=== PATIENT | male | born 1950 | race Hispanic/Latino ===

== ENCOUNTER → 2020-04-02 | Outpatient (CLI) | payer OTHER, MEDICARE | END | disposition home or self-care (01) | LOC: RAH 08:43 | PROVIDERS: ATTEND Internal Medicine Gastroenterology | DX: K76.89 Other specified diseases of liver (principal); J90 Pleural effusion, not elsewhere classified; R91.8 Other nonspecific abnormal finding of lung field; N28.1 Cyst of kidney, acquired; R91.1 Solitary pulmonary nodule; N28.89 Other specified disorders of kidney and ureter; K83.8 Other specified diseases of biliary tract; R63.4 Abnormal weight loss | CPT/HCPCS: 76700; 93975 ==

== ENCOUNTER → 2020-04-26 | Outpatient (CLI) | payer OTHER, MEDICARE ==
[~2020-04-26] MED LIST: IOHEXOL 350 MG/ML 100ML INFUS..BTL IV ONE
== END | disposition home or self-care (01) ==
LOC: RAH 09:22
PROVIDERS: ATTEND Internal Medicine Gastroenterology
DX: C18.0 Malignant neoplasm of cecum (principal); R18.8 Other ascites; N28.1 Cyst of kidney, acquired; C78.00 Secondary malignant neoplasm of unspecified lung; R91.1 Solitary pulmonary nodule; J90 Pleural effusion, not elsewhere classified; K56.1 Intussusception; Z85.038 Personal history of other malignant neoplasm of large intestine
CPT/HCPCS: 71270; 74178; Q9967